=== PATIENT | female | born 1975 | race Caucasian/White ===

== ENCOUNTER → 2023-10-12 | Outpatient (CLI) | payer BC ==
[~2023-10-12] MED LIST: Iohexol 300 - 10 ML VIAL IV ONE; Triamcinolone 40 MG/ML 1 ML VIAL IJ ONE
== END ==
LOC: COL.RAD 12:23
DX: M16.0 Bilateral primary osteoarthritis of hip (principal)
CPT/HCPCS: J0665; J3301; Q9967